=== PATIENT | male | born 2000 | race Caucasian/White ===

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

== ENCOUNTER 2021-07-23 15:14 | Emergency (ER) | payer BC, OTHER ==
[2021-07-23 15:45] VITALS: BP 122/72; PULSE 61; TEMP 97.8; BMI 24.3
== END 2021-07-23 17:34 | disposition home or self-care (01) ==
LOC: JERFT 15:14
DX: S63.602A Unspecified sprain of left thumb, initial encounter (principal); X50.0XXA Overexertion from strenuous movement or load, initial encounter
CPT/HCPCS: 73130-TC-LT-FY; 99281-25